=== PATIENT | male | born 1970 | race Caucasian/White ===

== ENCOUNTER 2022-02-08 08:07 | Emergency (ER) | payer SELFPAY ==
[2022-02-08] MEDS ORDERED: PERCOCET 5/325 T1 EA PO (08:37)
== END 2022-02-08 09:17 | disposition home or self-care (01) ==
LOC: ER1 08:07
DX: M54.9 Dorsalgia, unspecified (principal); F17.200 Nicotine dependence, unspecified, uncomplicated
CPT/HCPCS: 96372; 99283; J1885